=== PATIENT | female | born 1940 | race Caucasian/White ===

== ENCOUNTER 2017-11-29 10:21 | Emergency (ER) | payer MEDICARE ==
[~2017-11-29 10:21] MED LIST: [UNRECOGNIZED DRUG - REMARK]
[2017-11-29 11:06] LABS: HEMATOCRIT 42.7 % (37.0-47.0); HEMOGLOBIN 13.8 g/dl (12.0-16.0); IMMATURE GRANULOCYTES 0.4 % (0.0-1.0); MEAN CELL VOLUME 92.4 fL CALC (80.0-100.0); MEAN CORPUSCULAR HGB 29.9 pG CALC (26.0-32.0); MEAN CORPUSCULAR HGB CONC 32.3 g/L CALC (32.0-36.0); NEUT# 10.92 thou/uL (2.00-7.15); RED BLOOD COUNT 4.62 mill/uL (4.20-5.60); RED CELL DISTRI WIDTH 13.1 % (11.5-15.5)
[2017-11-29 11:14] LABS: ANION GAP 17 (6-22 (CALC)); BUN 17 mg/dL (8-23); BUN/CREATININE RATIO 27 (12-20 (CALC)); CARBON DIOXIDE 28 mmol/l (22-30); CHLORIDE 94 mmol/l (95-108); CREATININE 0.6 mg/dL (0.5-1.0); GFR > 60 ML/MIN (>=60 (CALC)); GFR FOR AFR.AMER. > 60 ML/MIN (>=60 (CALC)); POTASSIUM 4.1 mmol/l (3.5-5.1); SODIUM 135 mmol/l (137-146)
[2017-11-29 13:31] VITALS: BP 106/50
== END 2017-11-29 13:38 | disposition short-term general hospital (02) ==
LOC: ED 10:21
PROVIDERS: Family Medicine
PROC: 0BH17EZ Insertion of Endotracheal Airway into Trachea, Via Natural or Artificial Opening (ICD-10-PCS; principal; 2017-11-29)
PROC: 5A1935Z Respiratory Ventilation, Less than 24 Consecutive Hours (ICD-10-PCS; 2017-11-29)
PROC: 02HV33Z Insertion of Infusion Device into Superior Vena Cava, Percutaneous Approach (ICD-10-PCS; 2017-11-29)
PROC: 0T9B70Z Drainage of Bladder with Drainage Device, Via Natural or Artificial Opening (ICD-10-PCS; 2017-11-29)
PROC: 5A09357 Assistance with Respiratory Ventilation, Less than 24 Consecutive Hours, Continuous Positive Airway Pressure (ICD-10-PCS; 2017-11-29)
DX: J44.1 Chronic obstructive pulmonary disease with (acute) exacerbation (principal); J44.0 Chronic obstructive pulmonary disease with (acute) lower respiratory infection; J18.9 Pneumonia, unspecified organism; Z95.0 Presence of cardiac pacemaker; R06.02 Shortness of breath